=== PATIENT | male | born 2000 | race Caucasian/White ===

== ENCOUNTER 2024-11-22 06:59 | Emergency (ER) | payer OTHER ==
[~2024-11-22] VITALS: Ht 180.3 cm; Wt 77.0 kg
[2024-11-22 07:10] VITALS: BP 160/86; PULSE 116; RESP 18; TEMP 36.8; O2SAT 99
== END 2024-11-22 07:59 | disposition left against medical advice (07) ==
LOC: ER 06:59
DX: R10.31 Right lower quadrant pain (principal); J45.909 Unspecified asthma, uncomplicated
CPT/HCPCS: 99283